=== PATIENT | female | born 1985 | race American Indian/Alaskan Native ===

== ENCOUNTER 2022-07-30 11:17 | Emergency (ER) | payer MEDICAID ==
--- NOTE | 2022-07-30 12:32 | Emergency Department Report ---
ED Syncope HPI - General Chief Complaint: Syncope Stated Complaint: WEAKNESS/LINDO Time Seen by Provider: 07/30/22 12:04 - History of Present Illness Initial Comments: Patient is a 36-year-old female brought in by EMS status post syncopal episode. States she had COVID shot yesterday and has been feeling bad since. States she went into her kitchen to get something to eat when she suddenly passed out. She denies any chest pain, palpitations or shortness of breath. Reports remote history of syncope. Currently complains of mild headache. - Related Data Allergies/Adverse Reactions: Allergies divalproex sodium [From Depakote] Allergy (Verified 07/30/22 11:36) Unknown Penicillins Allergy (Verified 07/30/22 11:36) Unknown ED Review of Systems ROS: Stated complaint: WEAKNESS/LINDO Other details as noted in HPI Constitutional: malaise. denies: chills, fever Respiratory: denies: cough, shortness of breath, wheezing Cardiovascular: denies: chest pain, palpitations Gastrointestinal: denies: abdominal pain, nausea, diarrhea Genitourinary: denies: urgency, dysuria, discharge Musculoskeletal: denies: back pain, joint swelling, arthralgia Skin: denies: rash, lesions Neurological: headache Psychiatric: denies: anxiety, depression ED Physical Exam - General Limitations: No Limitations General appearance: alert, in no apparent distress - Head Head exam: Present: atraumatic, normocephalic - Eye Eye exam: Present: normal appearance, PERRL, EOMI - Respiratory Respiratory exam: Present: normal lung sounds bilaterally. Absent: respiratory distress - Cardiovascular Cardiovascular Exam: Present: regular rate, normal rhythm, normal heart sounds - GI/Abdominal GI/Abdominal exam: Present: soft. Absent: distended, tenderness - Rectal Rectal exam: Present: deferred - Neurological Exam Neurological exam: Present: alert, oriented X3 - Psychiatric Psychiatric exam: Present: normal affect, normal mood - Skin Skin exam: Present: warm, dry, intact, normal color ED Course Vital Signs 07/30/22 07/30/22 07/30/22 11:17 12:16 12:30 Temperature 97.7 F Pulse Rate 85 80 76 Respiratory 18 16 12 Rate Blood Pressure 119/72 119/72 Blood Pressure 125/75 [Left] O2 Sat by Pulse 98 99 100 Oximetry 0907/30/22 07/30/22 12:46 13:00 13:16 Temperature Pulse Rate 83 89 76 Respiratory 18 22 14 Rate Blood Pressure 123/77 123/77 123/77 Blood Pressure [Left] O2 Sat by Pulse 100 100 100 Oximetry 07/30/22 07/30/22 07/30/22 13:30 13:46 14:00 Temperature Pulse Rate 75 74 77 Respiratory 17 14 14 Rate Blood Pressure 123/77 119/79 119/79 Blood Pressure [Left] O2 Sat by Pulse 100 99 100 Oximetry 07/30/22 07/30/22 07/30/22 14:16 14:23 14:30 Temperature Pulse Rate 79 80 85 Respiratory 16 18 10 L Rate Blood Pressure 119/79 119/79 Blood Pressure 119/72 [Left] O2 Sat by Pulse 100 99 100 Oximetry 07/30/22 07/30/22 14:46 16:01 Temperature Pulse Rate 90 78 Respiratory 20 17 Rate Blood Pressure 103/73 Blood Pressure 119/79 [Left] O2 Sat by Pulse 100 98 Oximetry ED Medical Decision Making - Lab Data Result diagrams: 07/30/22 13:52 07/30/22 13:52 - Medical Decision Making Labs and orthostatics unremarkable. Likely vasovagal syncope. Patient stable for discharge home with return precautions. Critical care attestation.: If time is entered above; I have spent that time in minutes in the direct care of this critically ill patient, excluding procedure time. ED Disposition Clinical Impression: Syncope and collapse Disposition: 01 HOME / SELF CARE / HOMELESS Is pt being admited?: No Condition: Stable Instructions: Syncope, [id number], Syncope (ED) Additional Instructions: Please follow-up with your regular doctor as needed. You may return if symptoms worsen. Referrals: HELEN RODRIGUEZ MD [Primary Care Provider] - 3-5 Days
[2022-07-30 14:09] LABS: Basophils % (Auto) 0.4 % (0.0-1.8); Eosinophils # (Auto) 0.1 K/mm3 (0.0-0.4); Eosinophils % (Auto) 1.5 % (0.0-4.3); Hematocrit 39.2 % (30.3-42.9); Hemoglobin 12.7 gm/dl (10.1-14.3); Lymphocytes # (Auto) 2.3 K/mm3 (1.2-5.4); Lymphocytes % (Auto) 25.6 % (13.4-35.0); Mean Corpuscular HGB Conc 32 % (30-34); Mean Corpuscular Volume 84 fl (79-97); Monocytes # (Auto) 0.7 K/mm3 (0.0-0.8); Monocytes % (Auto) 7.8 % (0.0-7.3); Platelet Count 382 K/mm3 (140-440); Red Blood Count 4.66 M/mm3 (3.65-5.03); Red Cell Distribution Width 15.9 % (13.2-15.2)
[2022-07-30 14:58] LABS: Alanine Aminotransferase 13 units/L (7-56); Albumin 4.1 g/dL (3.9-5); Blood Urea Nitrogen 10 mg/dL (7-17); Calcium 9.2 mg/dL (8.4-10.2); Hemolysis Index 33
[2022-07-30 15:07] LABS: BUN/Creatinine Ratio 17
[2022-07-30 16:02] VITALS: BP 119/79
--- NOTE | 2022-08-03 09:33 | Electrocardiograph Report ---
[facility] Test Date: 2022-07-30 Test Time: 12:03:09 Pat Name: BETSY LUNDY Department: Room: Gender: F [employer]: GP : 1985 Requested By: JACKIE POLLOCK Order Number: [id number] Reading MD: Han Chirinos Measurements Intervals [place] Rate: 75 P: 60 AK: 170 QRS: -3 QRSD: 84 T: 12 QT: 392 QTc: 438 Interpretive Statements Sinus rhythm Nonspecific T abnormalities, anterior leads No previous ECG available for comparison Electronically Signed On 08-03-2022 9:33:31 EDT by Han Chirinos
== END 2022-07-30 16:01 | disposition home or self-care (01) ==
LOC: ED 11:17
DX: R55 Syncope and collapse (principal)
CPT/HCPCS: 36415; 80053; 84484; 84703; 85025; 93005; 99283; 99284